=== PATIENT | female | born 1970 | race Caucasian/White ===

== ENCOUNTER 2020-12-08 21:51 | Emergency (ER) | payer OTHER ==
[2020-12-08 22:07] VITALS: BP 135/87; PULSE 60; TEMP 98.9; BMI 28.1
[2020-12-08] MEDS ORDERED: FAMOTIDINE 20 MG/50 ML IVPB 20 MG/50 ML MG IVPB ONE ×2 (23:03→23:13)
[2020-12-08] MEDS ORDERED: MAG HYDROX/AL HYDROX/SIMETH -MYLANTA- ORAL SUSPENSION PO ONE (23:03)
[2020-12-08] MEDS ORDERED: MAG HYDROX/AL HYDROX/SIMETH 30 ML UNIT-DOSE CUP ONE (23:12)
[2020-12-08 23:31] LABS: BASO % 0.9 % (0-2.0); EOS % 0.9 % (0-4.5); HEMATOCRIT 44.8 % (32.4-45.2); HEMOGLOBIN 15.4 GM/dL (10.7-15.3); LYMPH % 31.8 % (8-40); MCHC 34.5 g/dl (32.0-36.0); MEAN PLT VOLUME 9.2 fl (7.5-11.1); MONO % 6.3 % (3.8-10.2); NEUT % 60.1 % (42.8-82.8); PLATELET COUNT 167 K/MM3 (134-434); RBC 4.98 M/mm3 (3.60-5.2); RDW 12.8 % (11.6-15.6); WHITE BLOOD COUNT 9.5 K/mm3 (4.0-10.0)
[2020-12-08 23:49] LABS: CHLORIDE 106 mmol/L (98-107); SODIUM 140 mmol/L (136-145)
[2020-12-08 23:53] LABS: ALBUMIN 4.4 g/dl (3.4-5.0); ANION GAP 7 MMOL/L (8-16); BLOOD UREA NITROGEN 9.8 mg/dL (7-18); CALCIUM 9.5 mg/dL (8.5-10.1); CO2 28 mmol/L (21-32); GLUCOSE,RANDOM 103 mg/dL (74-106); LIPASE 179 U/L (73-393)
[2020-12-08 23:56] LABS: CREATININE 0.9 mg/dL (0.55-1.3); SGOT/AST 24 U/L (15-37); SGPT/ALT 45 U/L (13-61)
[2020-12-08 23:58] LABS: BILIRUBIN,TOTAL 0.5 mg/dL (0.2-1); TOT PROT 8.1 g/dl (6.4-8.2)
[2020-12-08 23:59] LABS: ALK PHOS 132 U/L (45-117)
[2020-12-09] MEDS ORDERED: morphine CARPU-JECT 4 MG/1 ML DISP.SYRIN IVPUSH ONE (00:49)
[2020-12-09] MEDS ORDERED: morphine SULFATE 4 MG/ML VIAL ONE (01:04)
[2020-12-09 01:45] LABS: URINE APPEARANCE CLEAR; URINE COLOR YELLOW
[2020-12-09 01:46] LABS: URINE BILIRUBIN NEGATIVE (NEGATIVE); URINE GLUCOSE (UA) NEGATIVE (NEGATIVE); URINE KETONE NEGATIVE (NEGATIVE); URINE NITRITE NEGATIVE (NEGATIVE); URINE PROTEIN NEGATIVE (NEGATIVE); URINE UROBILINOGEN 0.2 mg/dL (0.2-1.0)
[2020-12-09 01:47] LABS: EPI CELLS 2 /uL (0-25.1); HYALINE CASTS 0 /uL (0-3.1); URINE BACTERIA 19 /uL (0-1359); URINE LEUK ESTERASE TRACE (NEGATIVE); URINE RBC 6 /uL (0-23.9); URINE WBC 8 /uL (0-25.8)
== END 2020-12-09 04:56 | disposition home or self-care (01) ==
LOC: JER 21:51
PROC: 3E033NZ Introduction of Analgesics, Hypnotics, Sedatives into Peripheral Vein, Percutaneous Approach (ICD-10-PCS; principal; 2020-12-08)
PROC: 3E033NZ Introduction of Analgesics, Hypnotics, Sedatives into Peripheral Vein, Percutaneous Approach (ICD-10-PCS; 2020-12-08)
DX: R10.10 Upper abdominal pain, unspecified (principal)
CPT/HCPCS: 36415; 74177-TC; 76705-TC; 80053; 81003; 82550; 82553; 83690; 84484; 85025; 87077; 87086; 93005; 93010; 99285-25